=== PATIENT | female | born 1945 | race Caucasian/White ===

== ENCOUNTER 2018-10-20 14:44 | Inpatient (IN) | payer MEDICARE ==
[~2018-10-20] VITALS: Ht 167.6 cm; Wt 69.3 kg
--- NOTE | 2018-10-20 14:55 | ERD ---
ER Documentation Chief Complaint Chief Complaint rt hip pain HPI The patient is a 72-year-old female, presenting to the ER from a boarding care because of right hip pain after she fell 2 days ago, hitting the back of the head on the ground. She denies syncope, near syncope, facial pain, chest pain, dyspnea, abdominal pain, vomiting, dysuria, diarrhea. She is unable to ambulate because of the right hip pain. She does not smoke nor drink Past medical history: Depression Past surgical history: None ROS All systems reviewed and are negative except as per history of present illness. Medications Home Meds Reported Medications [Tylenol Pm] No Conflict Check, 2 TAB PO QHS 10/20/18 Cyanocobalamin (Vitamin B-12) (Vitamin B-12) Unknown Strength Capsule, 1 TAB PO DAILY, CAP 10/20/18 Metoprolol Tartrate* (Lopressor*) 25 Mg Tab, 12.5 MG PO BID, #60 TAB 10/20/18 Escitalopram Oxalate* (Lexapro*) 10 Mg Tablet, 10 MG PO DAILY, #30 TAB 10/20/18 Acetaminophen* (Acetaminophen*) 325 Mg Tablet, 325 MG PO NEEDED PRN for PAIN AND OR ELEVATED TEMP, #30 TAB 10/20/18 Allergies Allergies: Coded Allergies: Penicillins (Unverified Allergy, Unknown, 10/20/18) PMhx/Soc History of Surgery: No Anesthesia Reaction: No Hx Neurological Disorder: No Hx Respiratory Disorders: No Hx Cardiac Disorders: No Hx Psychiatric Problems: Yes (DEPRESSION) Hx Miscellaneous Medical Probl: Yes (depression) Hx Alcohol Use: No Hx Substance Use: No Hx Tobacco Use: No Physical Exam Vitals Vital Signs Date Temp Pulse Resp B/P (MAP) Pulse Ox O2 O2 Flow FiO2 Time Delivery Rate 10/20/18 97.9 87 18 108/84 97 Room Air 15:04 (92) 10/20/18 97.9 77 18 122/57 98 14:53 (78) Physical Exam Const: No acute distress. Head: Atraumatic. Eyes: Normal Conjunctiva. ENT: Normal External Ears, Nose and Mouth. Neck: Full range of motion. No meningismus. Resp: Clear to auscultation bilaterally. Cardio: Regular rate and rhythm. Abd: Soft, non distended, normal bowel sounds, non tender. Skin: No petechiae or rashes. Back: No midline or flank tenderness. Ext: moderate right hip tenderness, no ecchymosis, right lower extr emity shortened and externally rotated, palpable pulses Neur: Awake and alert. Psych: Normal Mood and Affect. Result Diagram: 10/20/18 1519 10/20/18 1519 Results 24 hrs Laboratory Tests Test 10/20/18 15:19 White Blood Count 7.7 10^3/ul Red Blood Count 2.59 10^6/ul Hemoglobin 8.9 g/dl Hematocrit 27.8 % Mean Corpuscular Volume 107.3 fl Mean Corpuscular Hemoglobin 34.4 pg Mean Corpuscular Hemoglobin Concent 32.0 g/dl Red Cell Distribution Width 15.2 % Platelet Count 270 10^3/UL Mean Platelet Volume 9.7 fl Immature Granulocytes % 0.800 % Neutrophils % 78.9 % Lymphocytes % 9.3 % Monocytes % 9.7 % Eosinophils % 0.9 % Basophils % 0.4 % Nucleated Red Blood Cells % 0.0 /100WBC Immature Granulocytes # 0.060 10^3/ul Neutrophils # 6.1 10^3/ul Lymphocytes # 0.7 10^3/ul Monocytes # 0.8 10^3/ul Eosinophils # 0.1 10^3/ul Basophils # 0.0 10^3/ul Nucleated Red Blood Cells # 0.0 10^3/ul Prothrombin Time 12.2 Sec Prothrombin Time Ratio 1.0 INR International Normalized Ratio 0.89 Activated Partial Thromboplast Time 38.2 Sec Sodium Level 142 mmol/L Potassium Level 2.6 mmol/L Chloride Level 103 mmol/L Carbon Dioxide Level 33 mmol/L Anion Gap 6 Blood Urea Nitrogen 11 mg/dl Creatinine 0.37 mg/dl Est Glomerular Filtrat Rate mL/min mL/min Glucose Level 119 mg/dl Calcium Level 8.4 mg/dl Magnesium Level 2.0 mg/dl Current Medications Medications Dose Sig/Rai Start Time Status Last (Trade) Ordered Route PRN Stop Time Admin Dose Reason Admin Potassium 100 ml @ Q2H IVPB 10/20/18 10/20/18 Chloride 50 mls/hr 16:30 17:39 10/20/18 20:29 Potassium 60 meq ONCE STAT 10/20/18 DC 10/20/18 Chloride PO 16:21 17:39 (Klor-Con 20) 10/20/18 16:40 Morphine 2 mg ONCE STAT 10/20/18 DC 10/20/18 Sulfate IV 17:14 17:38 (morphine) 10/20/18 17:15 Ondansetron 4 mg ONCE STAT 10/20/18 DC 10/20/18 HCl (Zofran IV 17:14 17:38 Inj) 10/20/18 17:15 Sodium 1,000 ml @ Q1H ONCE 10/20/18 10/20/18 Chloride 1,000 mls/hr IV 17:30 17:39 10/20/18 18:29 Procedures/MDM [place] [address] Radiology Main Line: [phone] DIAGNOSTIC IMAGING REPORT Patient: SHEELA BROWN : 1945 Age: 72 Sex: F MR #: [id number] DOS: 10/20/18 1524 Ordering MD: MOR PEREIRA MD Location: E/R Room/Bed: PROCEDURE: CT Brain without contrast. CLINICAL INDICATION: Status post fall. TECHNIQUE: A CT of the brain was performed on a multi-slice CT scanner utilizing axial imaging from the skull base through the vertex without intravenous contrast. Multiplanar reformatted images were made. One or more the following dose reduction techniques were utilized: Automated exposure control, adjustment of the mA/ or kV according to patient's size, or use of iterative reconstruction technique. DICOM images are available for review. The CTDIvol is 38.9 mGy and the DLP is 779.2 mGycm. COMPARISON: CT HEAD 10/13/2016 FINDINGS: There is no intracranial hemorrhage, mass effect, or midline shift. No extra- axial hematoma is seen. Note is made of a right retrocerebellar cyst measuring a pproximately 1.5 cm in AP diameter, unchanged. Mild atrophy is identified with compensatory ventricular and sulcal enlargement. Mild decreased attenuation is seen in the periventricular and deep white matter, compatible with microvascular ischemic disease. The colbert white matter differentiation is well preserved with no acute infarct detected. The osseous structures and visualized paranasal sinuses are unremarkable. IMPRESSION: 1. No evidence of acute intracranial pathology. 2. Mild diffuse atrophy. 3. There is mild microvascular ischemic disease in the periventricular and deep white matter. 4. There is a 1.5 cm right retrocerebellar cyst, unchanged. RPTAT: TT .Cindy Pinzon MD, MD Date Time Electronically viewed and signed by .Cindy Pinzon MD, MD on 10/20/2018 17:35 .H/ CC: MOR PEREIRA MD [id number] [place] [address] Radiology Main Line: [phone] DIAGNOSTIC IMAGING REPORT Patient: SHEELA BROWN : 1945 Age: 72 Sex: F MR #: [id number] DOS: 10/20/18 1702 Ordering MD: MOR PEREIRA MD Location: E/R Room/Bed: PROCEDURE: CT Pelvis. CLINICAL INDICATION: Right hip pain. TECHNIQUE: CT scan of the pelvis without contrast was performed on a multi- detector high resolution CT scanner. The patient was scanned without intravenous contrast. Coronal and sagittal reformatted images were obtained from the axial source images. Images were reviewed on a high-resolution PACS workstation. DICOM images are available. DLP = 316.69 mGy-cm, CTDI = 8.23 mGy. One or more of the following dose reduction techniques were used: - Automated exposure control. - Adjustment of the mA and/or kV according to patient size. - Use of iterative reconstruction technique. COMPARISON: None. FINDINGS: Bones: Osteopenia. Minimally impacted comminuted intertrochanteric fracture with fracture line just extending to the subtrochanteric junction. Nondisplaced fracture of the right ischial tuberosity. Post-traumatic deformity of the right inferior pubic ramus with likely nondisplaced focal acute fracture. Severe right hip osteoarthritis with subchondral sclerosis, cystic change and severe cartilage space narrowing with prominent remodelling of the right hip joint and mild superior migration, and likely underlying dysplastic hip. Post-traumatic deformity of the right superior pubic ramus. Degenerative change at the pubic symphysis. SI joints demonstrate mild degenerative change. Compression deformities of the visualized lower lumbar vertebral bodies. Total left hip arthroplasty without periprosthetic lucency or fracture identified. Multilevel degenerative disc disease and facet arthropathy in the visualized lower lumbar spine. Soft tissues: Diffuse soft tissue swelling about the fracture within the right hip. Right hip joint effusion. Mild atrophy and fatty infiltration of the right gluteus minimus and medius. Atrophy and fatty infiltration of the right psoas. Mild subcutaneous edema in the left hip, as well atrophy and fatty infiltration of the left gluteus medius and minimus. Visualized portions of the pelvis demonstrate a 3.7 cm right adnexal cyst. Scattered colonic diverticula. Mild fat stranding about the rectum. IMPRESSION: 1. Osteopenia. 2. Mildly impacted comminuted intertrochanteric fracture with fracture line just extending to the subtrochanteric junction. 3. Nondisplaced fracture of the ischial tuberosity. Post-traumatic deformity of the right inferior pubic ramus with likely adjacent nondisplaced acute fracture. 4. Dysplastic right hip with severe osteoarthritis. Total left hip arthroplasty without CT evidence of hardware complication. 5. Multilevel compression deformities of the visualized lower lumbar spine. 6. 3.7 cm right adnexal cyst. Recommend follow-up ultrasound for further evalua tion. 7. Mild fat stranding about the rectum may represent focal proctitis. Correlate clinically. RPTAT: BBDD An order was created via [employer] to contact the referring provider and confirm receipt of the above findings at the time of this dictation. Physician Dung Date Time Electronically viewed and signed by Physician Dung on 10/20/2018 17:59 RG/ CC: MOR PEREIRA MD [id number] [place] [address] Radiology Main Line: [phone] DIAGNOSTIC IMAGING REPORT Patient: SHEELA BROWN : 1945 Age: 72 Sex: F MR #: [id number] DOS: 10/20/18 1502 Ordering MD: MOR PEREIRA MD Location: E/R Room/Bed: PROCEDURE: XR Chest. CLINICAL INDICATION: Chest pain TECHNIQUE: Single frontal chest x-ray. COMPARISON: None. FINDINGS: The lungs are clear. No focal opacification is seen. The cardiomediastinal silhouette is unremarkable. The osseous structures are remarkable for undulation and levoscoliosis of the thoracic spine. IMPRESSION: 1. No acute cardiopulmonary process. 2. Significant levoscoliosis of the thoracic spine. RPTAT: PP .Cuate Perez MD, MD Date Time Electronically viewed and signed by .Cuate Perez MD, MD on 10/20/2018 16:48 .B/ CC: MOR PEREIRA MD [id number] [place] [address] Radiology Main Line: [phone] DIAGNOSTIC IMAGING REPORT Patient: SHEELA BROWN : 1945 Age: 72 Sex: F MR #: [id number] DOS: 10/20/18 1502 Ordering MD: MOR PEREIRA MD Location: E/R Room/Bed: PROCEDURE: XR Femur. CLINICAL INDICATION: Right leg pain. TECHNIQUE: 5 views of the right femur were obtained. COMPARISON: No prior studies are available for comparison. FINDINGS: There is diffuse bony demineralization. No fracture or osseous lesion is identified. Right hip joint is abnormal. Bony remodelling and deformity the right femoral head. Lateral subluxation of the femoral head with respect to the acetabulum. The acetabulum is shallow and dysplastic. The right femoral neck is poorly evaluated. The soft tissues are unremarkable. Postsurgical changes of the tibia is noted. Atherosclerotic vascular calcifications. IMPRESSION: 1. 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 2. Bony deformity and remodelling of the right femoral head. 3. Right femoral neck is suboptimally visualized. 4. Diffuse severe bony demineralization. 5. Scattered benign chronic senescent changes. 6. No definite acute fracture or dislocation. RPTAT: HMJB .Cuate Perez MD, MD Date Time Electronically viewed and signed by .Cuate Perez MD, MD on 10/20/2018 16:51 .B/ CC: MOR PEREIRA MD [id number] [place] [address] Radiology Main Line: [phone] DIAGNOSTIC IMAGING REPORT Patient: SHEELA BROWN : 1945 Age: 72 Sex: F MR #: [id number] DOS: 10/20/18 1502 Ordering MD: MOR PEREIRA MD Location: E/R Room/Bed: PROCEDURE: XR Hip. CLINICAL INDICATION: Right hip pain. TECHNIQUE: 4 views of the right hip were performed. COMPARISON: None. FINDINGS: Osteoarthritic degenerative changes of the right hip joint space is seen. Osteophyte formation along the superolateral margin of the right acetabulum is seen. Bony remodelling and deformity of the right femoral head. Bony dysplasia of the right acetabulum. Significant joint space narrowing is present. The r ight femoral head is intact although the right femoral neck is suboptimally visualized. The soft tissues are unremarkable. No radiopaque foreign body is seen. The remaining osseous structures are remarkable for benign chronic age- related senescent changes. Diffuse bony demineralization. IMPRESSION: 1. Severe chronic degenerative changes of the right hip. 2. 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 3. Suboptimal visualization of the right femoral neck. Subtle fracture cannot be excluded. CT scan would be useful for further assessment of the right hip. 4. Scattered benign chronic changes seen elsewhere throughout the study. RPTAT: HMJB .Cuate Chris, MD, MD Date Time Electronically viewed and signed by .Cuate Perez MD, on 10/20/2018 16:53 .B/ CC: MOR PEREIRA MD [id number] Pending Consultation: I discussed the patient with the on-call orthopedist Dr. Vargas, he was made aware of the lab, the treatment, the patient condition and he accepted the consult MEDICAL MAKING DECISION: The patient is a 72-year-old female, presenting with acute right hip fracture, acute fracture of the ischial tuberosity, acute hypokalemia. She was treated with potassium chloride 40 mEq IV and 40 mcg p.o. for acute hypokalemia, morphine 2 mg IV for pain, Zofran 4 mg IV for nausea, Potts catheter was inserted. The differential diagnoses considered include but are not limited to fracture, internal derangement, pelvic fracture Departure Diagnosis: Primary Impression: Intertrochanteric fracture of right femur Additional Impressions: Fracture of right ischial tuberosity Hypokalemia Anemia Condition: Stable Comments I discussed the findings with the patient. I discussed the patient with the hospitalist, who was made aware of the lab, the treatment, the patient condition. The patient is admitted to [facility] Disclaimer: Inadvertent spelling and grammatical errors are likely due to EHR/dictation software use and do not reflect on the overall quality of patient care. Also, please note that the electronic time recorded on this note does not necessarily reflect the actual time of the patient encounter. MOR PEREIRA MD Oct 20, 2018 14:54
[2018-10-20] MEDS ORDERED: POTASSIUM CHLORIDE (SR) 20 MEQ TAB PO STA (16:21)
[2018-10-20] MEDS ORDERED: ACET325T45 PO (16:54)
[2018-10-20] MEDS ORDERED: ESCI10TA PO (16:54)
[2018-10-20] MEDS ORDERED: METO-448 PO (16:55)
[2018-10-20] MEDS ORDERED: CYAN-23 PO (16:56)
[2018-10-20] MEDS ORDERED: TYLENOL PM PO (16:57)
[2018-10-20] MEDS ORDERED: morphine 2 MG INJ IV STA (17:14)
[2018-10-20] MEDS ORDERED: ONDANSETRON 4 MG INJ IV STA (17:14)
[2018-10-20] MEDS ORDERED: SOD CHLORIDE 0.9% 1,000 ML IV ONE (17:30)
[2018-10-20] MEDS: POTASSIUM CHLORIDE 100 ML IVPB SCH ×2 (17:39→19:48)
[2018-10-20] MEDS ORDERED: DEXTROSE 5%-0.45% NACL 1,000 ML IV SCH (18:41)
[2018-10-20] MEDS ORDERED: NACL 0.9% 3 ML SYG IV SCH (19:00)
[2018-10-20] MEDS ORDERED: ACETAMINOPHEN 325 MG TAB PO PRN (19:00)
[2018-10-20] MEDS: FAMOTIDINE 20 MG INJ IV SCH (19:17)
[2018-10-20 20:40] VITALS: BP 166/80; PULSE 85; RESP 18
[2018-10-20 21:00] VITALS: Ht 167.6 cm; Wt 69.3 kg
--- NOTE | 2018-10-21 00:14 | HP ---
Date/Time of Note Date/Time of Note DATE: 10/21/18 TIME: 00:14 Assessment/Plan VTE Prophylaxis SCD applied (from Nsg): Yes (Left lower extremity) Pharmacological prophylaxis: NA/contraindicated Pharm contraindication: low risk/ambulating Lines/Catheters IV Catheter Type (from Nrsg): Peripheral IV Assessment/Plan Hospital Course This is a 72-year-old female being admitted to the [facility] floor for: #1 acute right hip fracture: Orthopedic surgery Dr. Vargas was consulted by the ED however upon evaluation of the imaging studies by the orthopedic surgeon he determined that this likely will need a higher level of care for treatment given the complexity of her fracture and underlying dysplasia of the hip. He did contact the ED physician in regards to this however as the patient had already been admitted and on the inpatient unit it was unable to be taken down to the ER to be transferred. Nursing fertilizer supervisor was contacted as well as the pre-access correctional counselor/case manager. They they are currently attempting to transfer the patient to higher level of care. In the meantime acute the patient on bedrest. Will allow the patient to eat as she is currently not going to be operated on. Will obtain a cardiac consult Dr. andrews for preop clearance given her underlying A. fib. Imaging studies showed:Mildly impacted comminuted intertrochanteric fracture with fracture line just extending to the subtrochanteric junction. Nondisplaced fracture of the ischial tuberosity. Post-traumatic deformity of the right inferior pubic ramus with likely adjacent nondisplaced acute fracture. Dysplastic right hip with severe osteoarthritis. Total left hip arthroplasty without CT evidence of hardware complication. 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 #2 atrial fibrillation: Currently rate controlled, patient is not on any anticoagulation. Continue metoprolol #3 macrocytic anemia: We will check vitamin B12, folate levels. To monitor CBC levels. No signs of any acute bleed. #4 Hypokalemia: Possibly secondary to poor p.o. intake. Will replete. Monitor closely. Will check magnesium level as well. #5 suspect mild dementia: Patient is a poor historian and on examination she does appear to possibly have some component of underlying dementia. She is able to answer questions and articulate. She does report that she lives in a boarding care. #6 suspect scabies: lesions of the right lower extremity: treat with permetherim. #7 CODE STATUS: Patient states that she is a full code #8 DVT GI prophylaxis: SCDs to the left lower extremity, no GI prophylaxis indicated Further treatment strategy will be implemented as per the clinical course. Result Diagram: 10/20/18 1519 10/20/18 1519 Results 24hrs Laboratory Tests Test 10/20/18 15:19 White Blood Count 7.7 Red Blood Count 2.59 L Hemoglobin 8.9 L Hematocrit 27.8 L Mean Corpuscular Volume 107.3 H Mean Corpuscular Hemoglobin 34.4 H Mean Corpuscular Hemoglobin Concent 32.0 Red Cell Distribution Width 15.2 H Platelet Count 270 Mean Platelet Volume 9.7 Immature Granulocytes % 0.800 H Neutrophils % 78.9 H Lymphocytes % 9.3 L Monocytes % 9.7 Eosinophils % 0.9 Basophils % 0.4 Nucleated Red Blood Cells % 0.0 Immature Granulocytes # 0.060 H Neutrophils # 6.1 Lymphocytes # 0.7 L Monocytes # 0.8 Eosinophils # 0.1 Basophils # 0.0 Nucleated Red Blood Cells # 0.0 Prothrombin Time 12.2 Prothrombin Time Ratio 1.0 INR International Normalized Ratio 0.89 Activated Partial Thromboplast Time 38.2 H Sodium Level 142 Potassium Level 2.6 *L Chloride Level 103 Carbon Dioxide Level 33 H Anion Gap 6 Blood Urea Nitrogen 11 Creatinine 0.37 L Est Glomerular Filtrat Rate mL/min Glucose Level 119 Calcium Level 8.4 Magnesium Level 2.0 HPI/ROS Admit Date/Time Admit Date/Time Oct 20, 2018 at 18:46 Hx of Present Illness Chief complaint: Fell while trying to go to the bathroom, hip pain Patient is a poor historian. The patient is a 72-year-old female, [facility] because of right hip pain after she tripped and fell 2 days ago trying to go to the bathroom, hitting the back of the head on the ground. She also fell onto her right leg. He denies any current headaches or dizziness. She denies syncope, near syncope, facial pain, chest pain, dyspnea, abdominal pain, vomiting, dysuria, diarrhea. She has been unable to ambulate secondary to her right hip pain. Allergies: Penicillin Medications: See TORRES OSULLIVAN Const: As per HPI Eyes : No pain discharge or redness or change in visual acuity ENT: No pain, sore throat, congestion, congestion, dysphagia or discharge Respiratory: No shortness of breath, cough, sputum, wheezing, or pleuritic pain Cardiovascular: No chest pain, palpitation, PND, or edema GI : no change in appetite, abdominal pain, nausea, vomiting, diarrhea, constipation, or change in the color his stool Genitourinary: No dysuria, hematuria, flank pain , discharge or CVA tenderness Musculoskeletal: As per HPI Skin: No rash, bruising or hives Neuro: No headache, dizziness, syncope, seizure, focal weakness Endocrine: No polyuria, polydipsia, temperature intolerance Psych: No hallucination, depression, anxiety or suicidal ideation PMH/Family/Social Past Medical History Depression, A. fib Medications Current Medications Dextrose/Sodium Chloride 1,000 ml @ 100 mls/hr Q10H IV Last administered on 10/20/18at 19:17; Admin Dose 100 MLS/HR; Start 10/20/18 at 18:41 IV Flush (NS 3 ml) 3 ml PER PROTOCOL IV ; Start 10/20/18 at 19:00 Ondansetron HCl (Zofran Inj) 4 mg Q6H PRN IV NAUSEA/VOMITING; Start 10/20/18 at 19:00 Acetaminophen (Tylenol Tab) 650 mg Q6H PRN PO .PAIN 1-3 OR TEMP; Start 10/20/18 at 19:00 Acetaminophen/ Hydrocodone Bitart ([place] (5/325)) 1 tab Q6H PRN PO .PAIN 4-6; Start 10/20/18 at 19:00 Morphine Sulfate (morphine) 2 mg Q4H PRN IV .PAIN 7-10; Start 10/20/18 at 19:00 Famotidine (Pepcid Iv) 20 mg DAILY IV Last administered on 10/20/18at 19:17; Admin Dose 20 MG; Start 10/20/18 at 19:00 Escitalopram Oxalate (Lexapro) 10 mg DAILY PO ; Start 10/21/18 at 09:00; Status UNV Metoprolol Tartrate (Lopressor) 12.5 mg BID PO ; Start 10/21/18 at 00:30; Status UNV Coded Allergies: Penicillins (Unverified Allergy, Unknown, 10/20/18) Past Surgical History Left hip surgery, right forearm surgery Family History Significant Family History: no pertinent family hx Social History Alcohol Use: none Smoking Status: Never smoker Drug Use: none Exam/Review of Systems Vital Signs Vitals Vital Signs Date Temp Pulse Resp B/P (MAP) Pulse Ox O2 O2 Flow FiO2 Time Delivery Rate 10/20/18 97.7 85 18 166/80 94 20:40 (108) 10/20/18 Room Air 20:08 Intake and Output 10/20/18 10/20/18 10/21/18 1515:00 23:00 07:00 IntakeIntake Total 100 ml BalanceBalance 100 ml Exam Exam General: Patient is currently lying in bed in no acute distress HEENT: Atraumatic, normocephalic. The pupils are equal, round and reactive. Extr aocular motor are intact Neck: Supple with full range of motion. No rigidity or meningismus Chest: Nontender Lungs: Clear to auscultation bilaterally no crackles rales or wheezing Heart: Irregularly irregular, rate controlled Abdomen: Soft , nontender, nondistended , bowel sounds are present. No guarding no rebound tenderness , No masses or organomegaly. No costovertebral temporal angle mass Extremities: Right lower extremity is shorter and inverted compared to the left. Skin: right posterior leg: rash, lesions suspicious for scabies Neurologic: Alert and awake, oriented x2 speech normal, cranial nerves II through XII are intact, motor and sensory are intact, Additional Comments PROCEDURE: CT Pelvis. CLINICAL INDICATION: Right hip pain. TECHNIQUE: CT scan of the pelvis without contrast was performed on a multi- detector high resolution CT scanner. The patient was scanned without intravenous contrast. Coronal and sagittal reformatted images were obtained from the axial source images. Images were reviewed on a high-resolution PACS workstation. DICOM images are available. DLP = 316.69 mGy-cm, CTDI = 8.23 mGy. One or more of the following dose reduction techniques were used: - Automated exposure control. - Adjustment of the mA and/or kV according to patient size. - Use of iterative reconstruction technique. COMPARISON: None. FINDINGS: Bones: Osteopenia. Minimally impacted comminuted intertrochanteric fracture with fracture line just extending to the subtrochanteric junction. Nondisplaced fracture of the right ischial tuberosity. Post-traumatic deformity of the right inferior pubic ramus with likely nondisplaced focal acute fracture. Severe right hip osteoarthritis with subchondral sclerosis, cystic change and severe cartilag e space narrowing with prominent remodelling of the right hip joint and mild superior migration, and likely underlying dysplastic hip. Post-traumatic deformity of the right superior pubic ramus. Degenerative change at the pubic symphysis. SI joints demonstrate mild degenerative change. Compression d eformities of the visualized lower lumbar vertebral bodies. Total left hip arthroplasty without periprosthetic lucency or fracture identified. Multilevel degenerative disc disease and facet arthropathy in the visualized lower lumbar spine. Soft tissues: Diffuse soft tissue swelling about the fracture within the right hip. Right hip joint effusion. Mild atrophy and fatty infiltration of the right gluteus minimus and medius. Atrophy and fatty infiltration of the right psoas. Mild subcutaneous edema in the left hip, as well atrophy and fatty infiltration of the left gluteus medius and minimus. Visualized portions of the pelvis demonstrate a 3.7 cm right adnexal cyst. Scattered colonic diverticula. Mild fat stranding about the rectum. IMPRESSION: 1. Osteopenia. 2. Mildly impacted comminuted intertrochanteric fracture with fracture line just extending to the subtrochanteric junction. 3. Nondisplaced fracture of the ischial tuberosity. Post-traumatic deformity of the right inferior pubic ramus with likely adjacent nondisplaced acute fracture. 4. Dysplastic right hip with severe osteoarthritis. Total left hip arthroplasty without CT evidence of hardware complication. 5. Multilevel compression deformities of the visualized lower lumbar spine. 6. 3.7 cm right adnexal cyst. Recommend follow-up ultrasound for further evaluation. 7. Mild fat stranding about the rectum may represent focal proctitis. Correlate clinically. RPTAT: BBDD An order was created via [employer] to contact the referring provider and confirm receipt of the above findings at the time of this dictation. Physician Dung Date Time Electronically viewed and signed by Physician Dung on 10/20/2018 17:59 RG/ CC: MOR PEREIRA MD [id number] PROCEDURE: CT Brain without contrast. CLINICAL INDICATION: Status post fall. TECHNIQUE: A CT of the brain was performed on a multi-slice CT scanner utilizing axial imaging from the skull base through the vertex without intravenous contrast. Multiplanar reformatted images were made. One or more the following dose reduction techniques were utilized: Automated exposure control, adjustment of the mA/ or kV according to patient's size, or use of iterative reconstruction technique. DICOM images are available for review. The CTDIvol is 38.9 mGy and the DLP is 779.2 mGycm. COMPARISON: CT HEAD 10/13/2016 FINDINGS: There is no intracranial hemorrhage, mass effect, or midline shift. No extra- axial hematoma is seen. Note is made of a right retrocerebellar cyst measuring approximately 1.5 cm in AP diameter, unchanged. Mild atrophy is identified with compensatory ventricular and sulcal enlargement. Mild decreased attenuation is seen in the periventricular and deep white matter, compatible with microvascular ischemic disease. The colbert white matter differentiation is well preserved with no acute infarct detected. The osseous structures and visualized paranasal sinuses are unremarkable. IMPRESSION: 1. No evidence of acute intracranial pathology. 2. Mild diffuse atrophy. 3. There is mild microvascular ischemic disease in the periventricular and deep white matter. 4. There is a 1.5 cm right retrocerebellar cyst, unchanged. RPTAT: TT .Cindy Pinzon MD, MD Date Time Electronically viewed and signed by .Cindy Pinzon MD, MD on 10/20/2018 17:35 .H/ CC: MOR PEREIRA MD [id number] PROCEDURE: XR Chest. CLINICAL INDICATION: Chest pain TECHNIQUE: Single frontal chest x-ray. COMPARISON: None. FINDINGS: The lungs are clear. No focal opacification is seen. The cardiomediastinal silhouette is unremarkable. The osseous structures are remarkable for undulation and levoscoliosis of the thoracic spine. IMPRESSION: 1. No acute cardiopulmonary process. 2. Significant levoscoliosis of the thoracic spine. RPTAT: PP .Cuate Perez MD, MD Date Time Electronically viewed and signed by .Cuate Perez MD, MD on 10/20/2018 16:48 .B/ CC: MOR PEREIRA MD [id number] PROCEDURE: XR Femur. CLINICAL INDICATION: Right leg pain. TECHNIQUE: 5 views of the right femur were obtained. COMPARISON: No prior studies are available for comparison. FINDINGS: There is diffuse bony demineralization. No fracture or osseous lesion is identified. Right hip joint is abnormal. Bony remodelling and deformity the right femoral head. Lateral subluxation of the femoral head with respect to the acetabulum. The acetabulum is shallow and dysplastic. The right femoral neck is poorly evaluated. The soft tissues are unremarkable. Postsurgical changes of the tibia is noted. Atherosclerotic vascular calcifications. IMPRESSION: 1. 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 2. Bony deformity and remodelling of the right femoral head. 3. Right femoral neck is suboptimally visualized. 4. Diffuse severe bony demineralization. 5. Scattered benign chronic senescent changes. 6. No definite acute fracture or dislocation. RPTAT: HMJB .Cuate Perez MD, MD Date Time Electronically viewed and signed by .Cuate Perez MD, MD on 10/20/2018 16:51 .B/ CC: MOR PEREIRA MD [id number] PROCEDURE: XR Hip. CLINICAL INDICATION: Right hip pain. TECHNIQUE: 4 views of the right hip were performed. COMPARISON: None. FINDINGS: Osteoarthritic degenerative changes of the right hip joint space is seen. Osteophyte formation along the superolateral margin of the right acetabulum is seen. Bony remodelling and deformity of the right femoral head. Bony dysplasia of the right acetabulum. Significant joint space narrowing is present. The right femoral head is intact although the right femoral neck is suboptimally visualized. The soft tissues are unremarkable. No radiopaque foreign body is seen. The remaining osseous structures are remarkable for benign chronic age- related senescent changes. Diffuse bony demineralization. IMPRESSION: 1. Severe chronic degenerative changes of the right hip. 2. 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 3. Suboptimal visualization of the right femoral neck. Subtle fracture cannot be excluded. CT scan would be useful for further assessment of the right hip. 4. Scattered benign chronic changes seen elsewhere throughout the study. RPTAT: HMJB .Cuate Perez MD, MD Date Time Electronically viewed and signed by .Cuate Perez MD, MD on 10/20/2018 16:53 .B/ CC: MOR PEREIRA MD [id number] LINDA SARAH Oct 21, 2018 00:14
[2018-10-21 00:50] VITALS: BP 130/67
[2018-10-21] MEDS: METOPROLOL 25 MG TAB PO SCH ×3 (00:50→20:58)
[2018-10-21] MEDS ORDERED: MAGNESIUM SULFATE 1 GM/D5W 100 ML IVPB ONE (01:30)
[2018-10-21] MEDS: HYDROCODONE/APAP (5/325) TAB PO PRN ×3 (02:06→20:04)
[2018-10-21 02:45] VITALS: BP 137/79; PULSE 74; RESP 17
[2018-10-21 07:22] VITALS: BP 142/63; PULSE 58; RESP 18
[2018-10-21] MEDS: FAMOTIDINE 20 MG INJ IV SCH (09:32)
[2018-10-21] MEDS: ESCITALOPRAM 10 MG TAB PO SCH (09:38)
[2018-10-21] MEDS: morphine 2 MG INJ IV PRN ×3 (11:33→23:06)
[2018-10-21 14:00] VITALS: BP 99/56; PULSE 68; RESP 18
--- NOTE | 2018-10-21 17:54 | PN ---
Date/Time of Note Date/Time of Note DATE: 10/21/18 TIME: 17:49 Assessment/Plan VTE Prophylaxis SCD applied (from Nsg): Yes (Left lower extremity) Pharmacological prophylaxis: NA/contraindicated Pharm contraindication: surgical contra Lines/Catheters IV Catheter Type (from Nrsg): Peripheral IV Assessment/Plan Hospital Course 1. Acute right hip fracture Orthopedic surgery Dr. Vargas consultation appreciated, recommendation is for higher level of care given the complexity of her fracture and underlying dysplasia of the hip Pain control bowling alley manager to assist with transfer Bedrest Imaging studies showed:Mildly impacted comminuted intertrochanteric fracture with fracture line just extending to the subtrochanteric junction. Nondisplaced fracture of the ischial tuberosity. Post-traumatic deformity of the right inferior pubic ramus with likely adjacent nondisplaced acute fracture. Dysplastic right hip with severe osteoarthritis. Total left hip arthroplasty without CT evidence of hardware complication. 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 2. Atrial fibrillation: Currently rate controlled, patient is not on any anticoagulation. Continue metoprolol 3. Macrocytic anemia B12 and folate are normal No signs of bleeding 4. Hypokalemia Replete 5. Likely dementia Patient is a poor historian and appears to have components of dementia Patient came from a boarding care Prophylaxis: SCDs Result Diagram: 10/21/18 1042 10/21/18 0447 Results 24hrs Laboratory Tests Test 10/21/18 04:47 10/21/18 10:42 White Blood Count 6.9 7.5 Red Blood Count 2.20 L 2.08 L Hemoglobin 7.6 L 7.2 L Hematocrit 23.9 L 22.8 L Mean Corpuscular Volume 108.6 H 109.6 H Mean Corpuscular Hemoglobin 34.5 H 34.6 H Mean Corpuscular Hemoglobin Concent 31.8 L 31.6 L Red Cell Distribution Width 15.1 H 15.1 H Platelet Count 237 246 Mean Platelet Volume 10.1 9.8 Immature Granulocytes % 0.700 H 0.700 H Neutrophils % 76.9 74.1 Lymphocytes % 10.4 L 10.6 L Monocytes % 11.5 H 13.8 H Eosinophils % 0.4 0.5 Basophils % 0.1 0.3 Nucleated Red Blood Cells % 0.0 0.0 Immature Granulocytes # 0.050 H 0.050 H Neutrophils # 5.3 5.5 Lymphocytes # 0.7 L 0.8 Monocytes # 0.8 1.0 H Eosinophils # 0.0 0.0 Basophils # 0.0 0.0 Nucleated Red Blood Cells # 0.0 0.0 Sodium Level 142 Potassium Level 3.4 L Chloride Level 105 Carbon Dioxide Level 31 Anion Gap 6 Blood Urea Nitrogen 9 Creatinine 0.33 L Est Glomerular Filtrat Rate mL/min Glucose Level 107 Hemoglobin A1c 5.1 Calcium Level 8.1 L Magnesium Level 2.3 Iron Level 21 L Total Iron Binding Capacity 170 L Percent Iron Saturation 12 L Ferritin 107.0 Total Bilirubin 0.8 Direct Bilirubin 0.00 Indirect Bilirubin 0.8 Aspartate Amino Transf (AST/SGOT) 13 L Alanine Aminotransferase (ALT/SGPT) 22 Alkaline Phosphatase 69 Total Protein 5.3 L Albumin 2.5 L Globulin 2.80 Albumin/Globulin Ratio 0.89 Vitamin B12 Level 455 Folate 17.0 Subjective 24 Hr Interval Summary Constitutional: no complaints Exam/Review of Systems Exam Vitals Vital Signs Date Temp Pulse Resp B/P (MAP) Pulse Ox O2 O2 Flow FiO2 Time Delivery Rate 10/21/18 98.0 68 18 99/56 (70) 96 Room Air 14:00 Intake and Output 10/20/18 10/20/18 10/21/18 1515:00 23:00 07:00 IntakeIntake Total 500 ml BalanceBalance 500 ml Constitutional: alert, oriented Respiratory: clear to auscultation Cardiovascular: regular rate and rhythm Gastrointestinal: soft; No distended Musculoskeletal: nl extremities to inspection Results Results 24hrs Laboratory Tests Test 10/21/18 04:47 10/21/18 10:42 White Blood Count 6.9 7.5 Red Blood Count 2.20 L 2.08 L Hemoglobin 7.6 L 7.2 L Hematocrit 23.9 L 22.8 L Mean Corpuscular Volume 108.6 H 109.6 H Mean Corpuscular Hemoglobin 34.5 H 34.6 H Mean Corpuscular Hemoglobin Concent 31.8 L 31.6 L Red Cell Distribution Width 15.1 H 15.1 H Platelet Count 237 246 Mean Platelet Volume 10.1 9.8 Immature Granulocytes % 0.700 H 0.700 H Neutrophils % 76.9 74.1 Lymphocytes % 10.4 L 10.6 L Monocytes % 11.5 H 13.8 H Eosinophils % 0.4 0.5 Basophils % 0.1 0.3 Nucleated Red Blood Cells % 0.0 0.0 Immature Granulocytes # 0.050 H 0.050 H Neutrophils # 5.3 5.5 Lymphocytes # 0.7 L 0.8 Monocytes # 0.8 1.0 H Eosinophils # 0.0 0.0 Basophils # 0.0 0.0 Nucleated Red Blood Cells # 0.0 0.0 Sodium Level 142 Potassium Level 3.4 L Chloride Level 105 Carbon Dioxide Level 31 Anion Gap 6 Blood Urea Nitrogen 9 Creatinine 0.33 L Est Glomerular Filtrat Rate mL/min Glucose Level 107 Hemoglobin A1c 5.1 Calcium Level 8.1 L Magnesium Level 2.3 Iron Level 21 L Total Iron Binding Capacity 170 L Percent Iron Saturation 12 L Ferritin 107.0 Total Bilirubin 0.8 Direct Bilirubin 0.00 Indirect Bilirubin 0.8 Aspartate Amino Transf (AST/SGOT) 13 L Alanine Aminotransferase (ALT/SGPT) 22 Alkaline Phosphatase 69 Total Protein 5.3 L Albumin 2.5 L Globulin 2.80 Albumin/Globulin Ratio 0.89 Vitamin B12 Level 455 Folate 17.0 Medications Medication Current Medications IV Flush (NS 3 ml) 3 ml PER PROTOCOL IV ; Start 10/20/18 at 19:00 Ondansetron HCl (Zofran Inj) 4 mg Q6H PRN IV NAUSEA/VOMITING; Start 10/20/18 at 19:00 Acetaminophen (Tylenol Tab) 650 mg Q6H PRN PO .PAIN 1-3 OR TEMP; Start 10/20/18 at 19:00 Acetaminophen/ Hydrocodone Bitart ([place] (5/325)) 1 tab Q6H PRN PO .PAIN 4-6 Last administered on 10/21/18 09:33; Admin Dose 1 TAB; Start 10/20/18 at 19:00 Morphine Sulfate (morphine) 2 mg Q4H PRN IV .PAIN 7-10 Last administered on 10/04 16:53; Admin Dose 2 MG; Start 10/20/18 at 19:00 Famotidine (Pepcid Iv) 20 mg DAILY IV Last administered on 10/21/18 09:32; Admin Dose 20 MG; Start 10/20/18 at 19:00 Escitalopram Oxalate (Lexapro) 10 mg DAILY PO Last administered on 10/21/18 09:38; Admin Dose 10 MG; Start 10/21/18 at 09:00 Metoprolol Tartrate (Lopressor) 12.5 mg BID PO Last administered on 10/21/18at 09:32; Admin Dose 12.5 MG; Start 10/21/18 at 00:30 Permethrin (Elimite 5% Cr) 1 applic ONCE ONCE TOP ; Start 10/21/18 at 21:00; Stop 10/21/18 at 21:01 MEETA FRANCE Oct 21, 2018 17:54
[2018-10-21 19:29] VITALS: BP 110/64; PULSE 67; RESP 17
--- NOTE | 2018-10-21 20:19 | RADRPT ---
Echocardiogram Report Patient Name: Annalise BROWN ID: [id number] : 1945 (72y 11m)Study Date: 10/21/2018 9:13:41 AM Gender: FAccession #: [id number] Tech: Desiree Ward [facility] Location: 223 Ref.Physician: LINDA SARAH Height(Cm): BSA: Weight(Kg): Quality: AdequateOrder Physician: LINDA SARAH Account #: Procedures: Echocardiographic Report: Transthoracic echocardiogram with complete 2D, M-Mode, and doppler examination. Indications: Atrial Fibrillation, and Pre-op. Measurements: 2D/M Mode Doppler Measurement Value Normal Range Measurement Value Normal Range LVIDd 2D 4.6 [ 3.8 - 5.2 ] cm AV Peak Patrice 1.8 [ 100.0 - 170.0 ] cm/sec LVIDs 2D 2.3 [ 2.2 - 3.5 ] cm AV Peak PG 12.0 [ 2.0 - 9.0 ] mmHg LVPWd 2D 1.2 [ 0.6 - 0.9 ] cm LVOT Peak Patrice 0.9 [ 70.0 - 110.0 ] cm/sec IVSd 2D 1.2 [ 0.6 - 0.9 ] cm LVOT Peak PG 4.0 [ 2.0 - 6.0 ] mmHg IVS/LVPW 2D 1.0 ratio MV E Peak Patrice 0.8 [ 60.0 - 130.0 ] cm/sec AoR Diam 2D 2.9 [ 2.3 - 3.1 ] cm MV Decel Time 173 [ 104 - 258 ] msec LA/Ao 2D 2 ratio TR Peak Patrice 2.8 [ 100.0 - 280.0 ] cm/sec LA Dimen 2D 4.6 [ 2.7 - 3.8 ] cm TR Peak PG 31.0 mmHg RVSP 34.0 [ 10.0 - 36.0 ] mmHg RA Pressure 3.0 mmHg Findings: Left Ventricle: Normal left ventricular systolic function. Normal left ventricular cavity size. Mild concentric left ventricular hypertrophy. Ejection fraction is visually estimated at 65 %. Tissue Doppler/Mitral Doppler indices are indeterminate in this study due to the presence of atrial fibrillation. Right Ventricle: Normal right ventricular size. Normal right ventricular systolic function. Left Atrium: There is moderate enlargement of left atrium. Right Atrium: There is mild enlargement of right atrium. Mitral Valve: Normal appearance and function of the mitral valve with trace physiologic regurgitation. Aortic Valve: Normal appearance of the aortic valve. No significant aortic stenosis or insufficiency. Tricuspid Valve: Normal appearance of the tricuspid valve. The estimated Peak RVSP is 34 mmHg. There is mild tricuspid regurgitation. Pulmonic Valve: Normal pulmonic valve appearance. There is trace pulmonic regurgitation. Pericardium: Normal pericardium with no significant pericardial effusion. Aorta: Normal aortic root. IVC: Normal size and normal respiratory collapse consistent with normal right atrial pressure. Conclusions: Mild concentric left ventricular hypertrophy with normal systolic function. Grade 1 diastolic dysfunction. Biatrial enlargement. Trace mitral regurgitation. Mild tricuspid regurgitation with mild pulmonary hypertension. Trace pulmonic regurgitation. Electronically Signed By: Elis Pena 2018-10-21 20:19:47 PDT
[2018-10-21] MEDS: HEPARIN 5,000 UNIT/1 ML VIAL SC SCH (20:59)
[2018-10-21] MEDS ORDERED: PERMETHRIN 5% 60 GM CR TOP ONE (21:00)
[2018-10-22] VITALS (10 sets, daily range): BP systolic 102–144; BP diastolic 57–75; PULSE 48–79; RESP 17–18
[2018-10-22] MEDS: HYDROCODONE/APAP (5/325) TAB PO PRN (05:34)
[2018-10-22] MEDS: MULTIVITAMINS THERAPEUTIC TAB PO SCH (08:41)
[2018-10-22] MEDS: FOLIC ACID 1 MG TAB PO SCH (08:41)
[2018-10-22] MEDS: FAMOTIDINE 20 MG INJ IV SCH (08:41)
[2018-10-22] MEDS: ESCITALOPRAM 10 MG TAB PO SCH (08:41)
[2018-10-22] MEDS: ASCORBIC ACID 500 MG TAB PO SCH (08:41)
[2018-10-22] MEDS: ZINC SULFATE 220 MG CAP PO SCH (08:41)
[2018-10-22] MEDS: METOPROLOL 25 MG TAB PO SCH ×2 (08:42→20:23)
[2018-10-22] MEDS: HEPARIN 5,000 UNIT/1 ML VIAL SC SCH ×2 (08:43→20:23)
--- NOTE | 2018-10-22 09:42 | CONS ---
DATE OF ADMISSION: 10/20/2018 DATE OF CONSULTATION: 10/20/2018 TYPE OF CONSULTATION: Orthopedic. HISTORY OF PRESENT ILLNESS: The patient is a 72-year-old female who was admitted on 10/20/2018 when she came to the emergency room complaining of pain involving her right hip. According to available i nformation, she had a ground-level fall 2 days prior to her admission. Following the fall, she was h aving considerable pain and she came to the emergency room. She seems to be living in a board and ca re arrangement and according to her elevator serviceman, she was able to walk with a walker prior to the fall. PAST MEDICAL HISTORY: She is known to have a history of depression. She is trying to describe some type of surgery involving her left hip and right leg; however, this was not clear according to her de scription; however, later radiologic evaluation revealed a presence of hemiarthroplasty involving the left hip and intramedullary nailing of right tibia on x-rays. In spite of the repeated inquiry abou t her previous condition involving her right hip she was not able to give me any information. My examination revealed a 72-year-old female who is a poor historian and also seems to have a poor me bubba and was not able to provide any box cutter information. There was tenderness and mild swelling jeremy und the right hip. The right lower extremity is shorter than the left lower extremity and seems to b e showing and an internal rotation. Range of motion of the right hip could not be tested properly be cause of the pain. Neurologic examination of the right lower extremity was somewhat difficult because of the less than ideal cooperation from the patient. 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 There were no obvious fractures visible on the plain x-rays. However, CT scan shows fractures in volving the intertrochanteric area. The fracture was minimally displaced but fracture line was visib le or so, it was noted in the CT scan that she has probably hemiarthroplasty involving her left hip. Regular x-ray also shows a presence of intramedullary nail involving the right tibia. DIAGNOSTIC IMPRESSION: 1. 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 2. Fractures involving intertrochanteric area of the right hip. TREATMENT PLAN: She may benefit from total hip replacement considering all the combination of situat ion; however, because of the dysplastic changes involving the right hip, combined with a fracture, loretta weeks may benefit from transfer to a [facility] where the total joint specialist who is able an d willing to do a total hip replacement with special care including possible use of custom made compo nents for total hip replacement of her right hip. If the transfer is not possible, then we may need to try to manage the situation with the pin fixation of the intertrochanteric fracture for now until she can be seen by a total hip replacement specialist with experience in this type of situation. Dictated By: JC CONNELL MD IK/NTS Conf#: [id number] DID#: [id number] CC: MEETA FRANCE MD; LINDA SARAH MD;*EndCC*
[2018-10-22] MEDS: morphine 2 MG INJ IV PRN ×2 (14:12→21:04)
--- NOTE | 2018-10-22 15:17 | PN ---
Date/Time of Note Date/Time of Note DATE: 10/22/18 TIME: 15:16 Assessment/Plan VTE Prophylaxis Risk score (from Nsg)>0 risk: 11 Pharmacological prophylaxis: heparin Lines/Catheters IV Catheter Type (from Nrsg): Saline Lock Assessment/Plan Hospital Course 1. Acute right hip fracture Orthopedic surgery Dr. Vargas consultation appreciated, recommendation is for higher level of care given the complexity of her fracture and underlying dysplasia of the hip Pain control contracting manager to assist with transfer Bedrest Imaging studies showed:Mildly impacted comminuted intertrochanteric fracture with fracture line just extending to the subtrochanteric junction. Nondisplaced fracture of the ischial tuberosity. Post-traumatic deformity of the right inferior pubic ramus with likely adjacent nondisplaced acute fracture. Dysplastic right hip with severe osteoarthritis. Total left hip arthroplasty without CT evidence of hardware complication. 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 2. Atrial fibrillation: Currently rate controlled, patient is not on any anticoagulation. Continue metoprolol 3. Macrocytic anemia B12 and folate are normal No signs of bleeding 4. Hypokalemia Repleted 5. Likely dementia Patient is a poor historian and appears to have components of dementia Patient came from a boarding care Prophylaxis: Heparin Result Diagram: 10/22/18 0316 10/22/18 0316 Results 24hrs Laboratory Tests Test 10/22/18 03:16 White Blood Count 7.1 Red Blood Count 2.13 L Hemoglobin 7.4 L Hematocrit 23.5 L Mean Corpuscular Volume 110.3 H Mean Corpuscular Hemoglobin 34.7 H Mean Corpuscular Hemoglobin Concent 31.5 L Red Cell Distribution Width 15.1 H Platelet Count 257 Mean Platelet Volume 10.0 Immature Granulocytes % 0.600 H Neutrophils % 71.7 Lymphocytes % 13.3 L Monocytes % 12.9 H Eosinophils % 1.1 Basophils % 0.4 Nucleated Red Blood Cells % 0.0 Immature Granulocytes # 0.040 H Neutrophils # 5.1 Lymphocytes # 1.0 Monocytes # 0.9 Eosinophils # 0.1 Basophils # 0.0 Nucleated Red Blood Cells # 0.0 Sodium Level 141 Potassium Level 3.8 Chloride Level 102 Carbon Dioxide Level 33 H Anion Gap 6 Blood Urea Nitrogen 12 Creatinine 0.36 L Est Glomerular Filtrat Rate mL/min Glucose Level 115 Calcium Level 8.1 L Subjective 24 Hr Interval Summary Constitutional: no complaints Exam/Review of Systems Exam Vitals Vital Signs Date Temp Pulse Resp B/P (MAP) Pulse Ox O2 O2 Flow FiO2 Time Delivery Rate 10/22/18 98.0 48 18 125/58 97 Room Air 14:55 (80) Intake and Output 10/21/18 10/21/18 10/22/18 1515:00 23:00 07:00 IntakeIntake Total 500 ml 100 ml BalanceBalance 500 ml 100 ml Constitutional: alert Respiratory: clear to auscultation Cardiovascular: regular rate and rhythm Gastrointestinal: soft; No distended Musculoskeletal: nl extremities to inspection Results Results 24hrs Laboratory Tests Test 10/22/18 03:16 White Blood Count 7.1 Red Blood Count 2.13 L Hemoglobin 7.4 L Hematocrit 23.5 L Mean Corpuscular Volume 110.3 H Mean Corpuscular Hemoglobin 34.7 H Mean Corpuscular Hemoglobin Concent 31.5 L Red Cell Distribution Width 15.1 H Platelet Count 257 Mean Platelet Volume 10.0 Immature Granulocytes % 0.600 H Neutrophils % 71.7 Lymphocytes % 13.3 L Monocytes % 12.9 H Eosinophils % 1.1 Basophils % 0.4 Nucleated Red Blood Cells % 0.0 Immature Granulocytes # 0.040 H Neutrophils # 5.1 Lymphocytes # 1.0 Monocytes # 0.9 Eosinophils # 0.1 Basophils # 0.0 Nucleated Red Blood Cells # 0.0 Sodium Level 141 Potassium Level 3.8 Chloride Level 102 Carbon Dioxide Level 33 H Anion Gap 6 Blood Urea Nitrogen 12 Creatinine 0.36 L Est Glomerular Filtrat Rate mL/min Glucose Level 115 Calcium Level 8.1 L Medications Medication Current Medications IV Flush (NS 3 ml) 3 ml PER PROTOCOL IV ; Start 10/20/18 at 19:00 Ondansetron HCl (Zofran Inj) 4 mg Q6H PRN IV NAUSEA/VOMITING; Start 10/20/18 at 19:00 Acetaminophen (Tylenol Tab) 650 mg Q6H PRN PO .PAIN 1-3 OR TEMP; Start 10/20/18 at 19:00 Acetaminophen/ Hydrocodone Bitart ([place] (5/325)) 1 tab Q6H PRN PO .PAIN 4-6 Last administered on 10/22/18at 05:34; Admin Dose 1 TAB; Start 10/20/18 at 19:00 Morphine Sulfate (morphine) 2 mg Q4H PRN IV .PAIN 7-10 Last administered on 14:12; Admin Dose 2 MG; Start 10/20/18 at 19:00 Famotidine (Pepcid Iv) 20 mg DAILY IV Last administered on 10/22/18 08:41; Admin Dose 20 MG; Start 10/20/18 at 19:00 Escitalopram Oxalate (Lexapro) 10 mg DAILY PO Last administered on 10/22/18 08:41; Admin Dose 10 MG; Start 10/21/18 at 09:00 Metoprolol Tartrate (Lopressor) 12.5 mg BID PO Last administered on 10/22/18 08:42; Admin Dose 12.5 MG; Start 10/21/18 at 00:30 Heparin Sodium (Porcine) (Heparin (5000 Units/1ml)) 5,000 unit BID SC Last administered on 10/22/18 08:43; Admin Dose 5,000 UNIT; Start 10/21/18 at 21:00 Multivitamins Therapeutic (Theragran) 1 tab DAILY PO Last administered on 10/22/18 08:41; Admin Dose 1 TAB; Start 10/22/18 at 09:00 Ascorbic Acid (Vitamin C) 500 mg DAILY PO Last administered on 10/22/18 08:41; Admin Dose 500 MG; Start 10/22/18 at 09:00 Folic Acid (Folic Acid) 1 mg DAILY PO Last administered on 10/22/18 08:41; Admin Dose 1 MG; Start 10/22/18 at 09:00 Zinc Sulfate (Zinc Sulfate) 220 mg DAILY PO Last administered on 10/22/18 08:41; Admin Dose 220 MG; Start 10/22/18 at 09:00 MEETA FRANCE 19, 2019 15:17
[2018-10-23] MEDS: morphine 2 MG INJ IV PRN ×3 (01:34→14:57)
[2018-10-23 02:05] VITALS: BP 127/80; PULSE 77; RESP 18
[2018-10-23] MEDS: HYDROCODONE/APAP (5/325) TAB PO PRN ×2 (04:12→14:08)
[2018-10-23 08:20] VITALS: BP 120/63; PULSE 56; RESP 16
[2018-10-23] MEDS: ASCORBIC ACID 500 MG TAB PO SCH (08:51)
[2018-10-23] MEDS: ESCITALOPRAM 10 MG TAB PO SCH (08:51)
[2018-10-23] MEDS: FOLIC ACID 1 MG TAB PO SCH (08:51)
[2018-10-23] MEDS: MULTIVITAMINS THERAPEUTIC TAB PO SCH (08:51)
[2018-10-23] MEDS: ZINC SULFATE 220 MG CAP PO SCH (08:51)
[2018-10-23] MEDS: HEPARIN 5,000 UNIT/1 ML VIAL SC SCH ×2 (08:53→20:31)
[2018-10-23] MEDS: METOPROLOL 25 MG TAB PO SCH ×2 (09:00→20:26)
[2018-10-23 09:35] VITALS: BP 114/60; PULSE 52
--- NOTE | 2018-10-23 14:56 | PN ---
Date/Time of Note Date/Time of Note DATE: 10/23/18 TIME: 14:55 Assessment/Plan VTE Prophylaxis Risk score (from Nsg)>0 risk: 12 Pharmacological prophylaxis: heparin Lines/Catheters IV Catheter Type (from Nrsg): Saline Lock Assessment/Plan Hospital Course 1. Acute right hip fracture Orthopedic surgery Dr. Vargas consultation appreciated, recommendation is for higher level of care given the complexity of her fracture and underlying dysplasia of the hip Pain control quality control systems manager to assist with transfer Bedrest Imaging studies showed:Mildly impacted comminuted intertrochanteric fracture with fracture line just extending to the subtrochanteric junction. Nondisplaced fracture of the ischial tuberosity. Post-traumatic deformity of the right inferior pubic ramus with likely adjacent nondisplaced acute fracture. Dysplastic right hip with severe osteoarthritis. Total left hip arthroplasty without CT evidence of hardware complication. 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 2. Atrial fibrillation: Currently rate controlled, patient is not on any anticoagulation. Continue metoprolol 3. Macrocytic anemia B12 and folate are normal No signs of bleeding 4. Hypokalemia Repleted 5. Likely dementia Patient is a poor historian and appears to have components of dementia Patient came from a boarding care Prophylaxis: Heparin DC planning: Awaiting transfer Result Diagram: 10/22/18 0316 10/22/18 0316 Results 24hrs Laboratory Tests Test 10/23/18 05:53 Lab Scanned Report BLOOD TRANSFUSION Subjective 24 Hr Interval Summary Constitutional: no complaints Exam/Review of Systems Exam Vitals Vital Signs Date Temp Pulse Resp B/P (MAP) Pulse Ox O2 O2 Flow FiO2 Time Delivery Rate 10/23/18 52 114/60 09:35 (78) 10/23/18 98.0 16 93 08:20 10/22/18 Room Air 14:55 Intake and Output 10/22/18 10/22/18 10/23/18 1515:00 23:00 07:00 IntakeIntake Total 990 ml 480 ml BalanceBalance 990 ml 480 ml Constitutional: alert Respiratory: clear to auscultation Cardiovascular: regular rate and rhythm Gastrointestinal: soft; No distended Musculoskeletal: nl extremities to inspection Results Results 24hrs Laboratory Tests Test 10/23/18 05:53 Lab Scanned Report BLOOD TRANSFUSION Medications Medication Current Medications IV Flush (NS 3 ml) 3 ml PER PROTOCOL IV ; Start 10/20/18 at 19:00 Ondansetron HCl (Zofran Inj) 4 mg Q6H PRN IV NAUSEA/VOMITING; Start 10/20/18 at 19:00 Acetaminophen (Tylenol Tab) 650 mg Q6H PRN PO .PAIN 1-3 OR TEMP; Start 10/20/18 at 19:00 Acetaminophen/ Hydrocodone Bitart ([place] (5/325)) 1 tab Q6H PRN PO .PAIN 4-6 Last administered on 10/23/18 14:08; Admin Dose 1 TAB; Start 10/20/18 at 19:00 Morphine Sulfate (morphine) 2 mg Q4H PRN IV .PAIN 7-10 Last administered on 10/23/18 09:42; Admin Dose 2 MG; Start 10/20/18 at 19:00 Escitalopram Oxalate (Lexapro) 10 mg DAILY PO Last administered on 10/23/18 08:51; Admin Dose 10 MG; Start 10/21/18 at 09:00 Metoprolol Tartrate (Lopressor) 12.5 mg BID PO Last administered on 10/22/18 20:23; Admin Dose 12.5 MG; Start 10/21/18 at 00:30 Heparin Sodium (Porcine) (Heparin (5000 Units/1ml)) 5,000 unit BID SC Last administered on 10/23/18 08:53; Admin Dose 5,000 UNIT; Start 10/21/18 at 21:00 Multivitamins Therapeutic (Theragran) 1 tab DAILY PO Last administered on 10/23/18 08:51; Admin Dose 1 TAB; Start 10/22/18 at 09:00 Ascorbic Acid (Vitamin C) 500 mg DAILY PO Last administered on 10/23/18 08:51; Admin Dose 500 MG; Start 10/22/18 at 09:00 Folic Acid (Folic Acid) 1 mg DAILY PO Last administered on 10/23/18 08:51; Admin Dose 1 MG; Start 10/22/18 at 09:00 Zinc Sulfate (Zinc Sulfate) 220 mg DAILY PO Last administered on 10/23/18 08:51; Admin Dose 220 MG; Start 10/22/18 at 09:00 MEETA FRANCE Oct 23, 2018 14:56
[2018-10-23 15:05] VITALS: BP 112/68; PULSE 77; RESP 24
[2018-10-23 20:08] VITALS: BP 115/59; PULSE 67; RESP 18
[2018-10-24 02:21] VITALS: BP 112/76; PULSE 78; RESP 18
[2018-10-24 08:04] VITALS: BP 145/65; PULSE 75; RESP 18
[2018-10-24] MEDS: ZINC SULFATE 220 MG CAP PO SCH (08:39)
[2018-10-24] MEDS: morphine 2 MG INJ IV PRN ×4 (08:39→23:53)
[2018-10-24] MEDS: FOLIC ACID 1 MG TAB PO SCH (08:39)
[2018-10-24] MEDS: ESCITALOPRAM 10 MG TAB PO SCH (08:39)
[2018-10-24] MEDS: ASCORBIC ACID 500 MG TAB PO SCH (08:39)
[2018-10-24] MEDS: MULTIVITAMINS THERAPEUTIC TAB PO SCH (08:40)
[2018-10-24] MEDS: HEPARIN 5,000 UNIT/1 ML VIAL SC SCH ×2 (08:40→21:36)
[2018-10-24] MEDS: METOPROLOL 25 MG TAB PO SCH ×2 (08:41→21:36)
[2018-10-24] MEDS: ONDANSETRON 4 MG INJ IV PRN (10:37)
[2018-10-24] MEDS: HYDROCODONE/APAP (5/325) TAB PO PRN ×2 (10:37→16:52)
[2018-10-24 14:00] VITALS: BP 114/69; PULSE 68; RESP 17
--- NOTE | 2018-10-24 15:49 | PN ---
Date/Time of Note Date/Time of Note DATE: 10/24/18 TIME: 15:48 Assessment/Plan VTE Prophylaxis Risk score (from Nsg)>0 risk: 11 Pharmacological prophylaxis: heparin Lines/Catheters IV Catheter Type (from Nrsg): Peripheral IV Assessment/Plan Hospital Course 1. Acute right hip fracture Orthopedic surgery Dr. Vargas consultation appreciated, recommendation is for higher level of care given the complexity of her fracture and underlying dysplasia of the hip Pain control nutrition manager to assist with transfer Bedrest Imaging studies showed:Mildly impacted comminuted intertrochanteric fracture with fracture line just extending to the subtrochanteric junction. Nondisplaced fracture of the ischial tuberosity. Post-traumatic deformity of the right inferior pubic ramus with likely adjacent nondisplaced acute fracture. Dysplastic right hip with severe osteoarthritis. Total left hip arthroplasty without CT evidence of hardware complication. 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 2. Atrial fibrillation: Currently rate controlled, patient is not on any anticoagulation. Continue metoprolol 3. Macrocytic anemia B12 and folate are normal No signs of bleeding 4. Hypokalemia Repleted 5. Likely dementia Patient is a poor historian and appears to have components of dementia Patient came from a boarding care Prophylaxis: Heparin DC planning: Awaiting transfer Result Diagram: 10/22/18 0316 10/22/18 0316 Subjective 24 Hr Interval Summary Constitutional: no complaints Exam/Review of Systems Exam Vitals Vital Signs Date Temp Pulse Resp B/P (MAP) Pulse Ox O2 O2 Flow FiO2 Time Delivery Rate 10/24/18 97.9 68 17 114/69 96 Room Air 14:00 (84) Intake and Output 10/23/18 10/23/18 10/24/18 1515:00 23:00 07:00 IntakeIntake Total 480 ml 480 ml BalanceBalance 480 ml 480 ml Constitutional: alert, oriented Respiratory: clear to auscultation Cardiovascular: regular rate and rhythm Gastrointestinal: soft; No distended Musculoskeletal: nl extremities to inspection Medications Medication Current Medications IV Flush (NS 3 ml) 3 ml PER PROTOCOL IV ; Start 10/20/18 at 19:00 Ondansetron HCl (Zofran Inj) 4 mg Q6H PRN IV NAUSEA/VOMITING Last administered on 10/24/18at 10:37; Admin Dose 4 MG; Start 10/20/18 at 19:00 Acetaminophen (Tylenol Tab) 650 mg Q6H PRN PO .PAIN 1-3 OR TEMP; Start 10/20/18 at 19:00 Acetaminophen/ Hydrocodone Bitart ([place] (5/325)) 1 tab Q6H PRN PO .PAIN 4-6 Last administered on 10/24/18 10:37; Admin Dose 1 TAB; Start 10/20/18 at 19:00 Morphine Sulfate (morphine) 2 mg Q4H PRN IV .PAIN 7-10 Last administered on 10/24/18 13:05; Admin Dose 2 MG; Start 10/20/18 at 19:00 Escitalopram Oxalate (Lexapro) 10 mg DAILY PO Last administered on 10/24/18 08:39; Admin Dose 10 MG; Start 10/21/18 at 09:00 Metoprolol Tartrate (Lopressor) 12.5 mg BID PO Last administered on 10/24/18 08:41; Admin Dose 12.5 MG; Start 10/21/18 at 00:30 Heparin Sodium (Porcine) (Heparin (5000 Units/1ml)) 5,000 unit BID SC Last administered on 10/24/18 08:40; Admin Dose 5,000 UNIT; Start 10/21/18 at 21:00 Multivitamins Therapeutic (Theragran) 1 tab DAILY PO Last administered on 10/24/18 08:40; Admin Dose 1 TAB; Start 10/22/18 at 09:00 Ascorbic Acid (Vitamin C) 500 mg DAILY PO Last administered on 10/24/18 08:39; Admin Dose 500 MG; Start 10/22/18 at 09:00 Folic Acid (Folic Acid) 1 mg DAILY PO Last administered on 10/24/18 08:39; Admin Dose 1 MG; Start 10/22/18 at 09:00 Zinc Sulfate (Zinc Sulfate) 220 mg DAILY PO Last administered on 10/24/18 08:39; Admin Dose 220 MG; Start 10/22/18 at 09:00 MEETA FRANCE Oct 24, 2018 15:48
[2018-10-24 19:57] VITALS: BP 105/53; PULSE 68; RESP 18
[2018-10-25 02:00] VITALS: BP 111/54; PULSE 81; RESP 20
[2018-10-25] MEDS: HYDROCODONE/APAP (5/325) TAB PO PRN ×3 (02:05→20:11)
[2018-10-25] MEDS: morphine 2 MG INJ IV PRN ×5 (05:09→22:09)
[2018-10-25 08:03] VITALS: BP 124/63; PULSE 62; RESP 18
[2018-10-25] MEDS: HEPARIN 5,000 UNIT/1 ML VIAL SC SCH ×2 (08:07→20:13)
[2018-10-25] MEDS: MULTIVITAMINS THERAPEUTIC TAB PO SCH (08:07)
[2018-10-25] MEDS: FOLIC ACID 1 MG TAB PO SCH (08:08)
[2018-10-25] MEDS: ZINC SULFATE 220 MG CAP PO SCH (08:08)
[2018-10-25] MEDS: ASCORBIC ACID 500 MG TAB PO SCH (08:08)
[2018-10-25] MEDS: ESCITALOPRAM 10 MG TAB PO SCH (08:08)
[2018-10-25] MEDS: METOPROLOL 25 MG TAB PO SCH ×2 (08:10→20:14)
[2018-10-25 15:04] VITALS: BP 126/61; PULSE 63; RESP 18
--- NOTE | 2018-10-25 16:23 | PN ---
Date/Time of Note Date/Time of Note DATE: 10/25/18 TIME: 16:23 Assessment/Plan VTE Prophylaxis Risk score (from Nsg)>0 risk: 12 SCD applied (from Nsg): Yes Pharmacological prophylaxis: heparin Lines/Catheters IV Catheter Type (from Nrsg): Peripheral IV Assessment/Plan Hospital Course Alert, conversant No distress RRR CTAB R leg internally rotated at hip 1. Acute right hip fracture Orthopedic surgery Dr. Vargas consultation appreciated, recommendation is for higher level of care given the complexity of her fracture and underlying dysplasia of the hip Pain control asset manager to assist with transfer Bedrest Imaging studies showed:Mildly impacted comminuted intertrochanteric fracture with fracture line just extending to the subtrochanteric junction. Nondisplaced fracture of the ischial tuberosity. Post-traumatic deformity of the right inferior pubic ramus with likely adjacent nondisplaced acute fracture. Dysplastic right hip with severe osteoarthritis. Total left hip arthroplasty without CT evidence of hardware complication. 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 2. Atrial fibrillation: Currently rate controlled, patient is not on any anticoagulation. Continue metoprolol 3. Macrocytic anemia B12 and folate are normal No signs of bleeding 4. Hypokalemia Repleted 5. Likely dementia Patient is a poor historian and appears to have components of dementia Patient came from a boarding care Prophylaxis: Heparin DC planning: Awaiting transfer Result Diagram: 10/22/18 0316 10/22/18 0316 Subjective 24 Hr Interval Summary Free Text/Dictation Comfortable No distress Awaiting transfer Exam/Review of Systems Exam Vitals Vital Signs Date Temp Pulse Resp B/P (MAP) Pulse Ox O2 O2 Flow FiO2 Time Delivery Rate 10/25/18 97.8 63 18 126/61 96 15:04 (82) 10/24/18 Room Air 14:00 Intake and Output 10/24/18 10/24/18 10/25/18 1515:00 23:00 07:00 IntakeIntake Total 400 ml 400 ml 800 ml BalanceBalance 400 ml 400 ml 800 ml Medications Medication Current Medications IV Flush (NS 3 ml) 3 ml PER PROTOCOL IV ; Start 10/20/18 at 19:00 Ondansetron HCl (Zofran Inj) 4 mg Q6H PRN IV NAUSEA/VOMITING Last administered on 10/24/18at 10:37; Admin Dose 4 MG; Start 10/20/18 at 19:00 Acetaminophen (Tylenol Tab) 650 mg Q6H PRN PO .PAIN 1-3 OR TEMP; Start 10/20/18 at 19:00 Acetaminophen/ Hydrocodone Bitart ([place] (5/325)) 1 tab Q6H PRN PO .PAIN 4-6 Last administered on 10/25/18 08:08; Admin Dose 1 TAB; Start 10/20/18 at 19:00 Morphine Sulfate (morphine) 2 mg Q4H PRN IV .PAIN 7-10 Last administered on 10/25/18 13:32; Admin Dose 2 MG; Start 10/20/18 at 19:00 Escitalopram Oxalate (Lexapro) 10 mg DAILY PO Last administered on 10/25/18 08:08; Admin Dose 10 MG; Start 10/21/18 at 09:00 Metoprolol Tartrate (Lopressor) 12.5 mg BID PO Last administered on 10/25/18 08:10; Admin Dose 12.5 MG; Start 10/21/18 at 00:30 Heparin Sodium (Porcine) (Heparin (5000 Units/1ml)) 5,000 unit BID SC Last administered on 10/25/18 08:07; Admin Dose 5,000 UNIT; Start 10/21/18 at 21:00 Multivitamins Therapeutic (Theragran) 1 tab DAILY PO Last administered on 10/25/18 08:07; Admin Dose 1 TAB; Start 10/22/18 at 09:00 Ascorbic Acid (Vitamin C) 500 mg DAILY PO Last administered on 10/25/18 08:08; Admin Dose 500 MG; Start 10/22/18 at 09:00 Folic Acid (Folic Acid) 1 mg DAILY PO Last administered on 10/25/18 08:08; Admin Dose 1 MG; Start 10/22/18 at 09:00 Zinc Sulfate (Zinc Sulfate) 220 mg DAILY PO Last administered on 10/25/18 08:08; Admin Dose 220 MG; Start 10/22/18 at 09:00 FAUSTINO BADILLO MD Oct 25, 2018 16:23
[2018-10-25 20:00] VITALS: BP 128/58; PULSE 70; RESP 18
[2018-10-26 02:00] VITALS: BP 106/57; PULSE 65; RESP 18
[2018-10-26] MEDS: morphine 2 MG INJ IV PRN ×4 (04:18→20:05)
[2018-10-26 08:01] VITALS: BP 110/80; PULSE 60; RESP 16
[2018-10-26] MEDS: FOLIC ACID 1 MG TAB PO SCH (09:15)
[2018-10-26] MEDS: ESCITALOPRAM 10 MG TAB PO SCH (09:15)
[2018-10-26] MEDS: METOPROLOL 25 MG TAB PO SCH ×2 (09:16→20:05)
[2018-10-26] MEDS: ASCORBIC ACID 500 MG TAB PO SCH (09:16)
[2018-10-26] MEDS: ZINC SULFATE 220 MG CAP PO SCH (09:16)
[2018-10-26] MEDS: MULTIVITAMINS THERAPEUTIC TAB PO SCH (09:16)
[2018-10-26] MEDS: HEPARIN 5,000 UNIT/1 ML VIAL SC SCH ×2 (09:17→20:09)
--- NOTE | 2018-10-26 15:16 | PN ---
Date/Time of Note Date/Time of Note DATE: 10/26/18 TIME: 15:16 Assessment/Plan VTE Prophylaxis Risk score (from Nsg)>0 risk: 11 SCD applied (from Nsg): Yes Pharmacological prophylaxis: heparin Lines/Catheters IV Catheter Type (from Nrsg): Saline Lock Assessment/Plan Hospital Course Alert, conversant No distress RRR CTAB R leg internally rotated at hip 1. Acute right hip fracture Orthopedic surgery Dr. Vargas consultation appreciated, recommendation is for higher level of care given the complexity of her fracture and underlying dysplasia of the hip Pain control complex human resources manager to assist with transfer Bedrest Imaging studies showed:Mildly impacted comminuted intertrochanteric fracture with fracture line just extending to the subtrochanteric junction. Nondisplaced fracture of the ischial tuberosity. Post-traumatic deformity of the right inferior pubic ramus with likely adjacent nondisplaced acute fracture. Dysplastic right hip with severe osteoarthritis. Total left hip arthroplasty without CT evidence of hardware complication. 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 2. Atrial fibrillation: Currently rate controlled, patient is not on any anticoagulation. Continue metoprolol 3. Macrocytic anemia B12 and folate are normal No signs of bleeding 4. Hypokalemia Repleted 5. Likely dementia Patient is a poor historian and appears to have components of dementia Patient came from a boarding care Prophylaxis: Heparin DC planning: Awaiting transfer Result Diagram: 10/22/18 0316 10/22/18 0316 Subjective 24 Hr Interval Summary Free Text/Dictation Comfortable No change to status We await arrangements for transfer to tertiary center Exam/Review of Systems Exam Vitals Vital Signs Date Temp Pulse Resp B/P (MAP) Pulse Ox O2 O2 Flow FiO2 Time Delivery Rate 10/26/18 98.0 60 16 110/80 95 Room Air 08:01 (90) Intake and Output 10/25/18 10/25/18 10/26/18 1515:00 23:00 07:00 IntakeIntake Total 480 ml 720 ml 120 ml BalanceBalance 480 ml 720 ml 120 ml Medications Medication Current Medications IV Flush (NS 3 ml) 3 ml PER PROTOCOL IV ; Start 10/20/18 at 19:00 Ondansetron HCl (Zofran Inj) 4 mg Q6H PRN IV NAUSEA/VOMITING Last administered on 10/24/18at 10:37; Admin Dose 4 MG; Start 10/20/18 at 19:00 Acetaminophen (Tylenol Tab) 650 mg Q6H PRN PO .PAIN 1-3 OR TEMP; Start 10/20/18 at 19:00 Acetaminophen/ Hydrocodone Bitart ([place] (5/325)) 1 tab Q6H PRN PO .PAIN 4-6 Last administered on 10/25/18 20:11; Admin Dose 1 TAB; Start 10/20/18 at 19:00 Morphine Sulfate (morphine) 2 mg Q4H PRN IV .PAIN 7-10 Last administered on 10/26/18 13:32; Admin Dose 2 MG; Start 10/20/18 at 19:00 Escitalopram Oxalate (Lexapro) 10 mg DAILY PO Last administered on 10/26/18 09:15; Admin Dose 10 MG; Start 10/21/18 at 09:00 Metoprolol Tartrate (Lopressor) 12.5 mg BID PO Last administered on 10/26/18 09:16; Admin Dose 12.5 MG; Start 10/21/18 at 00:30 Heparin Sodium (Porcine) (Heparin (5000 Units/1ml)) 5,000 unit BID SC Last administered on 10/26/18 09:17; Admin Dose 5,000 UNIT; Start 10/21/18 at 21:00 Multivitamins Therapeutic (Theragran) 1 tab DAILY PO Last administered on 10/26/18 09:16; Admin Dose 1 TAB; Start 10/22/18 at 09:00 Ascorbic Acid (Vitamin C) 500 mg DAILY PO Last administered on 10/26/18 09:16; Admin Dose 500 MG; Start 10/22/18 at 09:00 Folic Acid (Folic Acid) 1 mg DAILY PO Last administered on 10/26/18 09:15; Admin Dose 1 MG; Start 10/22/18 at 09:00 Zinc Sulfate (Zinc Sulfate) 220 mg DAILY PO Last administered on 10/26/18 09:16; Admin Dose 220 MG; Start 10/22/18 at 09:00 FAUSTINO BADILLO MD Oct 26, 2018 15:16
[2018-10-26 15:38] VITALS: BP 130/61; PULSE 71; RESP 17
[2018-10-26] MEDS: HYDROCODONE/APAP (5/325) TAB PO PRN ×2 (15:41→21:37)
[2018-10-26 19:56] VITALS: BP 100/55; PULSE 69; RESP 17
[2018-10-27] MEDS: morphine 2 MG INJ IV PRN ×6 (00:19→22:01)
[2018-10-27 02:00] VITALS: BP 118/55; PULSE 60; RESP 18
[2018-10-27] MEDS: HYDROCODONE/APAP (5/325) TAB PO PRN (07:38)
[2018-10-27 07:43] VITALS: BP 120/59; RESP 17
[2018-10-27] MEDS: MULTIVITAMINS THERAPEUTIC TAB PO SCH (10:17)
[2018-10-27] MEDS: FOLIC ACID 1 MG TAB PO SCH (10:17)
[2018-10-27] MEDS: ASCORBIC ACID 500 MG TAB PO SCH (10:17)
[2018-10-27] MEDS: ZINC SULFATE 220 MG CAP PO SCH (10:17)
[2018-10-27] MEDS: METOPROLOL 25 MG TAB PO SCH ×2 (10:18→21:44)
[2018-10-27] MEDS: ESCITALOPRAM 10 MG TAB PO SCH (10:18)
[2018-10-27] MEDS: HEPARIN 5,000 UNIT/1 ML VIAL SC SCH ×2 (10:19→21:46)
[2018-10-27] MEDS: ONDANSETRON 4 MG INJ IV PRN (10:21)
--- NOTE | 2018-10-27 14:09 | PN ---
Date/Time of Note Date/Time of Note DATE: 10/27/18 TIME: 14:08 Assessment/Plan VTE Prophylaxis Risk score (from Nsg)>0 risk: 11 SCD applied (from Nsg): Yes Pharmacological prophylaxis: heparin Lines/Catheters IV Catheter Type (from Nrsg): Saline Lock Assessment/Plan Hospital Course Alert, conversant No distress RRR CTAB R leg internally rotated at hip 1. Acute right hip fracture Orthopedic surgery Dr. Vargas consultation appreciated, recommendation is for higher level of care given the complexity of her fracture and underlying dysplasia of the hip Pain control - Dr hSea to consult today lead project manager to assist with transfer Bedrest Imaging studies showed:Mildly impacted comminuted intertrochanteric fracture with fracture line just extending to the subtrochanteric junction. Nondisplaced fracture of the ischial tuberosity. Post-traumatic deformity of the right inferior pubic ramus with likely adjacent nondisplaced acute fracture. Dysplastic right hip with severe osteoarthritis. Total left hip arthroplasty without CT evidence of hardware complication. 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 2. Atrial fibrillation: Currently rate controlled, patient is not on any antico agulation. Continue metoprolol 3. Macrocytic anemia B12 and folate are normal No signs of bleeding 4. Hypokalemia Repleted 5. Likely dementia Patient is a poor historian and appears to have components of dementia Patient came from a boarding care Prophylaxis: Heparin DC planning: Awaiting transfer Subjective 24 Hr Interval Summary Free Text/Dictation Patient in severe pain We are still unable to find an accepting surgeon I have asked for a second opinion here Exam/Review of Systems Exam Vitals Vital Signs Date Temp Pulse Resp B/P (MAP) Pulse Ox O2 O2 Flow FiO2 Time Delivery Rate 10/27/18 98.1 17 120/59 93 Room Air 07:43 (79) 10/27/18 60 02:00 Intake and Output 10/26/18 10/26/18 10/27/18 1515:00 23:00 07:00 IntakeIntake Total 100 ml 1200 ml BalanceBalance 100 ml 1200 ml Medications Medication Current Medications IV Flush (NS 3 ml) 3 ml PER PROTOCOL IV ; Start 10/20/18 at 19:00 Ondansetron HCl (Zofran Inj) 4 mg Q6H PRN IV NAUSEA/VOMITING Last administered on 10/27/18at 10:21; Admin Dose 4 MG; Start 10/20/18 at 19:00 Acetaminophen (Tylenol Tab) 650 mg Q6H PRN PO .PAIN 1-3 OR TEMP Last administered on 10/27/18 10:21; Admin Dose 650 MG; Start 10/20/18 at 19:00 Acetaminophen/ Hydrocodone Bitart ([place] (5/325)) 1 tab Q6H PRN PO .PAIN 4-6 Last administered on 10/27/18 07:38; Admin Dose 1 TAB; Start 10/20/18 at 19:00 Escitalopram Oxalate (Lexapro) 10 mg DAILY PO Last administered on 10/27/18 10:18; Admin Dose 10 MG; Start 10/21/18 at 09:00 Metoprolol Tartrate (Lopressor) 12.5 mg BID PO Last administered on 10/27/18 10:18; Admin Dose 12.5 MG; Start 10/21/18 at 00:30 Heparin Sodium (Porcine) (Heparin (5000 Units/1ml)) 5,000 unit BID SC Last administered on 10/27/18 10:19; Admin Dose 5,000 UNIT; Start 10/21/18 at 21:00 Multivitamins Therapeutic (Theragran) 1 tab DAILY PO Last administered on 10:17; Admin Dose 1 TAB; Start 10/22/18 at 09:00 Ascorbic Acid (Vitamin C) 500 mg DAILY PO Last administered on 10/27/18 10:17; Admin Dose 500 MG; Start 10/22/18 at 09:00 Folic Acid (Folic Acid) 1 mg DAILY PO Last administered on 10/27/18 10:17; Admin Dose 1 MG; Start 10/22/18 at 09:00 Zinc Sulfate (Zinc Sulfate) 220 mg DAILY PO Last administered on 10/27/18 10:17; Admin Dose 220 MG; Start 10/22/18 at 09:00 Morphine Sulfate (morphine) 2 mg Q2H PRN IV .PAIN 7-10 Last administered on 10/27/18 13:50; Admin Dose 2 MG; Start 10/27/18 at 11:00 FAUSTINO BADILLO MD Oct 27, 2018 14:09
[2018-10-27 14:38] VITALS: BP 118/70; PULSE 65; RESP 17
--- NOTE | 2018-10-27 16:09 | DS ---
Date/Time of Note Date/Time of Note DATE: 10/27/18 TIME: 16:06 Discharge Summary Admission/Discharge Info Admit Date/Time Oct 20, 2018 at 18:46 Discharge Date/Time Discharge Diagnosis Hip fracture Patient Condition: Stable Hospital Course Patient presented after mechanical fall and found to have acute right hip fracture. Imaging studies showed: "Mildly impacted comminuted intertrochanteric fracture with fracture line just extending to the subtrochanteric junction. Nondisplaced fracture of the ischial tuberosity. Post-traumatic deformity of the right inferior pubic ramus with likely adjacent nondisplaced acute fracture. Dysplastic right hip with severe osteoarthritis. Total left hip arthroplasty without CT evidence of hardware complication. Deformity and dysplasia of the right acetabulum and right femoral head." Orthopedic surgeron Dr. Vargas was consultated who recommended transfer to a higher level of care given the complexity of her fracture and underlying dysplasia of the hip The patient required numerous doses of IV morhpine for analgesia She was also found to be in atrial fibrillation with normal rate and was continue on her home dose of metoprolol She was also found to have macroctyic anemia, b12 and folate levels were wtihin normal limits She also seems to have a degree of cognitive impairment, and a formal evaluation for dementia should be pursued She is now being transferred to [facility] for orthopedic management Home Meds Reported Medications [Tylenol Pm] No Conflict Check, 2 TAB PO QHS 10/20/18 Cyanocobalamin (Vitamin B-12) (Vitamin B-12) Unknown Strength Capsule, 1 TAB PO DAILY, CAP 10/20/18 Metoprolol Tartrate* (Lopressor*) 25 Mg Tab, 12.5 MG PO BID, #60 TAB 10/20/18 Escitalopram Oxalate* (Lexapro*) 10 Mg Tablet, 10 MG PO DAILY, #30 TAB 10/20/18 Acetaminophen* (Acetaminophen*) 325 Mg Tablet, 325 MG PO NEEDED PRN for PAIN AND OR ELEVATED TEMP, #30 TAB 10/20/18 Primary Care Provider Not On Staff Doctor Pending Labs Laboratory Tests Test 10/27/18 14:30 White Blood Count 6.7 10^3/ul (4.8-10.8) Red Blood Count 2.49 10^6/ul (4.20-5.40) Hemoglobin 8.5 g/dl (12.0-16.0) Hematocrit 26.4 % (37.0-47.0) Mean Corpuscular Volume 106.0 fl (82.0-101.0) Mean Corpuscular Hemoglobin 34.1 pg (29.0-33.0) Mean Corpuscular Hemoglobin Concent 32.2 g/dl (32.0-37.0) Red Cell Distribution Width 16.3 % (11.5-14.5) Platelet Count 184 10^3/UL (140-415) Mean Platelet Volume 9.7 fl (7.4-10.4) Immature Granulocytes % 0.600 % (0.001-0.429) Neutrophils % 69.9 % (39.0-77.0) Lymphocytes % 14.1 % (15.0-51.0) Monocytes % 14.1 % (0.0-11.0) Eosinophils % 1.0 % (0.0-7.0) Basophils % 0.3 % (0.0-2.0) Nucleated Red Blood Cells % 0.0 /100WBC (0.0-0.0) Immature Granulocytes # 0.040 10^3/ul (0.0-0.031) Neutrophils # 4.7 10^3/ul (1.6-7.5) Lymphocytes # 1.0 10^3/ul (0.8-2.9) Monocytes # 1.0 10^3/ul (0.3-0.9) Eosinophils # 0.1 10^3/ul (0.0-0.5) Basophils # 0.0 10^3/ul (0.0-0.1) Nucleated Red Blood Cells # 0.0 10^3/ul (0.0-0.0) Sodium Level 134 mmol/L (135-144) Potassium Level 4.6 mmol/L (3.5-5.1) Chloride Level 102 mmol/L (97-110) Carbon Dioxide Level 29 mmol/L (21-31) Anion Gap 3 (5-13) Blood Urea Nitrogen 11 mg/dl (7-20) Creatinine 0.34 mg/dl (0.44-1.00) Est Glomerular Filtrat Rate mL/min mL/min (>60) Glucose Level 112 mg/dl (70-220) Calcium Level 8.1 mg/dl (8.4-10.2) FAUSTINO BADILLO MD Oct 27, 2018 16:09
--- NOTE | 2018-10-27 16:11 | PN ---
DATE: 10/27/2018 We have been waiting for possible transfer to a hospital [facility] for higher level of care in the form of total hip replacement of the right hip. The transfer was accepted to [facility]. If the transfer was not possible, then possible ORIF of the fracture part and then refer them to hospital [facility] later on for the hemiarthroplasty of the right hip; however since she was acc epted for transfer, she is probably can be treated with the primary hemiarthroplasty or total hip rep lacement of the right hip which will be better for the patient. Dictated By: JC CONNELL MD IK/NTS Conf#: [id number] DID#: [id number] CC: LINDA SARAH MD; FAUSTINO BADILLO MD;*End*
[2018-10-27 20:00] VITALS: BP 112/55; PULSE 61; RESP 18
[2018-10-28 02:00] VITALS: BP 113/58; PULSE 63; RESP 17
[2018-10-28] MEDS: morphine 2 MG INJ IV PRN ×9 (03:12→22:27)
[2018-10-28 08:27] VITALS: BP 141/73; PULSE 68; RESP 24
[2018-10-28] MEDS: ESCITALOPRAM 10 MG TAB PO SCH (08:49)
[2018-10-28] MEDS: MULTIVITAMINS THERAPEUTIC TAB PO SCH (08:49)
[2018-10-28] MEDS: ASCORBIC ACID 500 MG TAB PO SCH (08:49)
[2018-10-28] MEDS: ZINC SULFATE 220 MG CAP PO SCH (08:49)
[2018-10-28] MEDS: FOLIC ACID 1 MG TAB PO SCH (08:49)
[2018-10-28] MEDS: METOPROLOL 25 MG TAB PO SCH ×2 (08:50→20:00)
[2018-10-28] MEDS: HEPARIN 5,000 UNIT/1 ML VIAL SC SCH ×2 (08:55→20:01)
[2018-10-28] MEDS ORDERED: morphine 2 MG INJ IV PRN (12:00)
[2018-10-28 15:17] VITALS: BP 104/58; PULSE 84; RESP 20
--- NOTE | 2018-10-28 16:35 | PN ---
Date/Time of Note Date/Time of Note DATE: 10/28/18 TIME: 16:35 Assessment/Plan VTE Prophylaxis Risk score (from Nsg)>0 risk: 10 SCD applied (from Nsg): Yes Pharmacological prophylaxis: heparin Lines/Catheters IV Catheter Type (from Nrsg): Saline Lock Assessment/Plan Hospital Course Patient presented after mechanical fall and found to have acute right hip fracture. Imaging studies showed: "Mildly impacted comminuted intertrochanteric fracture with fracture line just extending to the subtrochanteric junction. Nondisplaced fracture of the ischial tuberosity. Post-traumatic deformity of the right inferior pubic ramus with likely adjacent nondisplaced acute fracture. Dysplastic right hip with severe osteoarthritis. Total left hip arthroplasty without CT evidence of hardware complication. Deformity and dysplasia of the right acetabulum and right femoral head." Orthopedic surgeron Dr. Vargas was consultated who recommended transfer to a higher level of care given the complexity of her fracture and underlying dysplasia of the hip The patient required numerous doses of IV morhpine for analgesia She was also found to be in atrial fibrillation with normal rate and was continue on her home dose of metoprolol She was also found to have macroctyic anemia, b12 and folate levels were wtihin normal limits She also seems to have a degree of cognitive impairment, and a formal evaluation for dementia should be pursued She is now being transferred to [facility] for orthopedic management Result Diagram: 10/27/18 1430 10/27/18 1430 Subjective 24 Hr Interval Summary Free Text/Dictation Continued severe pain She has been accepted to [facility] but waiting for a bed Exam/Review of Systems Exam Vitals Vital Signs Date Temp Pulse Resp B/P (MAP) Pulse Ox O2 O2 Flow FiO2 Time Delivery Rate 10/28/18 98.9 84 20 104/58 81 15:17 (73) 10/27/18 Room Air 14:38 Intake and Output 10/27/18 10/27/18 10/28/18 1515:00 23:00 07:00 IntakeIntake Total 120 ml 720 ml BalanceBalance 120 ml 720 ml Medications Medication Current Medications IV Flush (NS 3 ml) 3 ml PER PROTOCOL IV ; Start 10/20/18 at 19:00 Ondansetron HCl (Zofran Inj) 4 mg Q6H PRN IV NAUSEA/VOMITING Last administered on 10/27/18at 10:21; Admin Dose 4 MG; Start 10/20/18 at 19:00 Acetaminophen (Tylenol Tab) 650 mg Q6H PRN PO .PAIN 1-3 OR TEMP Last administered on 10/27/18 10:21; Admin Dose 650 MG; Start 10/20/18 at 19:00 Acetaminophen/ Hydrocodone Bitart ([place] (5/325)) 1 tab Q6H PRN PO .PAIN 4-6 Last administered on 10/27/18 07:38; Admin Dose 1 TAB; Start 10/20/18 at 19:00 Escitalopram Oxalate (Lexapro) 10 mg DAILY PO Last administered on 10/28/18 08:49; Admin Dose 10 MG; Start 10/21/18 at 09:00 Metoprolol Tartrate (Lopressor) 12.5 mg BID PO Last administered on 10/28/18 08:50; Admin Dose 12.5 MG; Start 10/21/18 at 00:30 Heparin Sodium (Porcine) (Heparin (5000 Units/1ml)) 5,000 unit BID SC Last administered on 10/28/18 08:55; Admin Dose 5,000 UNIT; Start 10/21/18 at 21:00 Multivitamins Therapeutic (Theragran) 1 tab DAILY PO Last administered on 10/28/18 08:49; Admin Dose 1 TAB; Start 10/22/18 at 09:00 Ascorbic Acid (Vitamin C) 500 mg DAILY PO Last administered on 10/28/18 08:49; Admin Dose 500 MG; Start 10/22/18 at 09:00 Folic Acid (Folic Acid) 1 mg DAILY PO Last administered on 10/28/18 08:49; Admin Dose 1 MG; Start 10/22/18 at 09:00 Zinc Sulfate (Zinc Sulfate) 220 mg DAILY PO Last administered on 10/28/18 08:49; Admin Dose 220 MG; Start 10/22/18 at 09:00 Morphine Sulfate (morphine) 2 mg Q1H PRN IV .PAIN 7-10 Last administered on 10/28/18 15:27; Admin Dose 2 MG; Start 10/28/18 at 12:00 FAUSTINO BADILLO MD Oct 28, 2018 16:35
[2018-10-28 20:00] VITALS: BP 114/54; PULSE 80; RESP 18
[2018-10-29 02:00] VITALS: BP 136/62; PULSE 64; RESP 18
[2018-10-29] MEDS: morphine 2 MG INJ IV PRN ×2 (05:28→12:09)
[2018-10-29] MEDS: ZINC SULFATE 220 MG CAP PO SCH (08:49)
[2018-10-29] MEDS: ESCITALOPRAM 10 MG TAB PO SCH (08:49)
[2018-10-29] MEDS: FOLIC ACID 1 MG TAB PO SCH (08:50)
[2018-10-29] MEDS: ASCORBIC ACID 500 MG TAB PO SCH (08:50)
[2018-10-29] MEDS: MULTIVITAMINS THERAPEUTIC TAB PO SCH (08:50)
[2018-10-29] MEDS: METOPROLOL 25 MG TAB PO SCH (08:52)
[2018-10-29] MEDS: HEPARIN 5,000 UNIT/1 ML VIAL SC SCH (08:53)
[2018-10-29 09:07] VITALS: BP 129/61; PULSE 65; RESP 16
--- NOTE | 2018-10-29 14:24 | PN ---
Date/Time of Note Date/Time of Note DATE: 10/29/18 TIME: 14:23 Assessment/Plan VTE Prophylaxis Risk score (from Ns)>0 risk: 12 SCD applied (from Nsg): Yes Pharmacological prophylaxis: heparin Lines/Catheters IV Catheter Type (from Nrs): Saline Lock Assessment/Plan Hospital Course Patient presented after mechanical fall and found to have acute right hip fracture. Imaging studies showed: "Mildly impacted comminuted intertrochanteric fracture with fracture line just extending to the subtrochanteric junction. Nondisplaced fracture of the ischial tuberosity. Post-traumatic deformity of the right inferior pubic ramus with likely adjacent nondisplaced acute fracture. Dysplastic right hip with severe osteoarthritis. Total left hip arthroplasty without CT evidence of hardware complication. Deformity and dysplasia of the right acetabulum and right femoral head." Orthopedic surgeron Dr. Vargas was consultated who recommended transfer to a higher level of care given the complexity of her fracture and underlying dysplasia of the hip The patient required numerous doses of IV morhpine for analgesia She was also found to be in atrial fibrillation with normal rate and was continue on her home dose of metoprolol She was also found to have macroctyic anemia, b12 and folate levels were wtihin normal limits She also seems to have a degree of cognitive impairment, and a formal evaluation for dementia should be pursued She is now being transferred to [facility] for orthopedic management Result Diagram: 10/27/18 1430 10/27/18 1430 Subjective 24 Hr Interval Summary Free Text/Dictation Transferring to [facility] today for hip surgery I spoke to orthopedist there Dr Cohen who accepts Exam/Review of Systems Exam Vitals Vital Signs Date Temp Pulse Resp B/P (MAP) Pulse Ox O2 O2 Flow FiO2 Time Delivery Rate 10/29/18 98.0 65 16 129/61 95 09:07 (83) 10/29/18 Room Air 02:00 Intake and Output 10/28/18 10/28/18 10/29/18 1515:00 23:00 07:00 IntakeIntake Total 240 ml BalanceBalance 240 ml Medications Medication Current Medications IV Flush (NS 3 ml) 3 ml PER PROTOCOL IV ; Start 10/20/18 at 19:00 Ondansetron HCl (Zofran Inj) 4 mg Q6H PRN IV NAUSEA/VOMITING Last administered on 6/24/19at 10:21; Admin Dose 4 MG; Start 10/20/18 at 19:00 Acetaminophen (Tylenol Tab) 650 mg Q6H PRN PO .PAIN 1-3 OR TEMP Last administered on 10/27/18 10:21; Admin Dose 650 MG; Start 10/20/18 at 19:00 Acetaminophen/ Hydrocodone Bitart ([place] (5/325)) 1 tab Q6H PRN PO .PAIN 4-6 Last administered on 10/27/18 07:38; Admin Dose 1 TAB; Start 10/20/18 at 19:00 Escitalopram Oxalate (Lexapro) 10 mg DAILY PO Last administered on 10/29/18 08:49; Admin Dose 10 MG; Start 10/21/18 at 09:00 Metoprolol Tartrate (Lopressor) 12.5 mg BID PO Last administered on 10/29/18 08:52; Admin Dose 12.5 MG; Start 10/21/18 at 00:30 Heparin Sodium (Porcine) (Heparin (5000 Units/1ml)) 5,000 unit BID SC Last administered on 10/29/18 08:53; Admin Dose 5,000 UNIT; Start 10/21/18 at 21:00 Multivitamins Therapeutic (Theragran) 1 tab DAILY PO Last administered on 10/29/18 08:50; Admin Dose 1 TAB; Start 10/22/18 at 09:00 Ascorbic Acid (Vitamin C) 500 mg DAILY PO Last administered on 10/29/18 08:50; Admin Dose 500 MG; Start 10/22/18 at 09:00 Folic Acid (Folic Acid) 1 mg DAILY PO Last administered on 10/29/18 08:50; Admin Dose 1 MG; Start 10/22/18 at 09:00 Zinc Sulfate (Zinc Sulfate) 220 mg DAILY PO Last administered on 10/29/18 08:49; Admin Dose 220 MG; Start 10/22/18 at 09:00 Morphine Sulfate (morphine) 2 mg Q1H PRN IV .PAIN 7-10 Last administered on 10/29/18 12:09; Admin Dose 2 MG; Start 10/28/18 at 12:00 FAUSTINO BADILLO MD Oct 29, 2018 14:24
[2018-10-29 16:00] VITALS: BP 108/58; PULSE 64; RESP 24
== END 2018-10-29 15:45 | disposition short-term general hospital (02) | DRG 536 ==
LOC: E/R 14:44 → PP2 18:46
PROVIDERS: ADMIT Family Medicine; ATTEND Internal Medicine
PROC: 30233N1 Transfusion of Nonautologous Red Blood Cells into Peripheral Vein, Percutaneous Approach (ICD-10-PCS; principal; 2018-10-22)
DX: S72.141A Displaced intertrochanteric fracture of right femur, initial encounter for closed fracture (principal); I48.91 Unspecified atrial fibrillation; F03.90 Unspecified dementia, unspecified severity, without behavioral disturbance, psychotic disturbance, mood disturbance, and anxiety; D64.9 Anemia, unspecified; E87.6 Hypokalemia; F32.9 Major depressive disorder, single episode, unspecified; Q65.89 Other specified congenital deformities of hip; W01.10XA Fall on same level from slipping, tripping and stumbling with subsequent striking against unspecified object, initial encounter; Y93.89 Activity, other specified; Y92.099 Unspecified place in other non-institutional residence as the place of occurrence of the external cause; Y99.8 Other external cause status
CPT/HCPCS: 36415; 36430; 70450; 71045; 72170; 72192; 73510; 73550; 73560; 80048; 80053; 82607; 82728; 82746; 83036; 83540; 83735; 85025; 85610; 85730; 86850; 86900; 86901; 86920; 87081; 93005; 93306; 96365; 96375; J1644; J2270; J2405; J3475; J3480; J7030; J7042; P9016